=== PATIENT | male | born 1995 | race Two or more races ===

== ENCOUNTER 2020-08-05 02:45 | Emergency (ER) | payer OTHER ==
[~2020-08-05] VITALS: Ht 167.6 cm; Wt 93.6 kg
--- NOTE | 2020-08-05 03:15 | NUR ---
assessment made. ERP at bedside. Urine sample collected and sent to lab. patient gowned. all belongings placed on secured area, labelled and locked.
--- NOTE | 2020-08-05 03:34 | NUR ---
laborer syrup machine at bedside for blood draw.
--- NOTE | 2020-08-05 03:35 | NUR ---
sitter at the door.
[2020-08-05 03:43] LABS: BASOPHILS % (AUTO) 1 % (0-1); EOSINOPHILS % (AUTO) 2 % (1-7); LYMPHOCYTES % (AUTO) 28 % (22-44); MEAN CORPUSCULAR HEMOGLOBIN 29.2 pg (27.5-34.5); MEAN CORPUSCULAR HGB CONC 34.6 g/dL (33.2-36.2); MEAN PLATELET VOLUME 8.4 fL (7.4-10.4); MONOCYTES % (AUTO) 8 % (2-9); NEUTROPHILS % (AUTO) 61 % (42-75); PLATELET COUNT 220 x10^3/uL (130-400); RED BLOOD COUNT 4.98 x10^6/uL (4.38-5.82); RED CELL DISTRIBUTION WIDTH 13.8 % (9.4-14.8)
[2020-08-05 03:45] LABS: MD NO
[2020-08-05 03:45] LABS: AMPHETAMINE SCREEN, URINE Negative (Negative); BARBITURATE SCREEN, URINE Negative (Negative); BENZODIAZEPINE SCREEN, URINE Negative (Negative); CANNABINOID SCREEN, URINE Positive (Negative); COCAINE SCREEN, URINE Negative (Negative); METHADONE SCREEN, URINE Negative (Negative); OPIATE SCREEN, URINE Negative (Negative)
[2020-08-05 03:54] LABS: ALANINE AMINOTRANSFERASE 56 U/L (12-78); ALBUMIN 4.1 g/dL (3.4-5.0); ANION GAP 4 mmol/L (5-15); CALCIUM 9.5 mg/dL (8.5-10.1); CHLORIDE 105 mmol/L (98-107); CREATININE 0.84 mg/dL (0.7-1.3)
[2020-08-05 03:56] LABS: SALICYLATE LEVEL < 1.7 mg/dL (2.8-20.0)
[2020-08-05 04:05] LABS: ALKALINE PHOSPHATASE 136 U/L (45-117); TOTAL PROTEIN 7.7 g/dL (6.4-8.2)
--- NOTE | 2020-08-05 04:16 | NUR ---
patient sleeping. girlfriend at bedside. no complaints at this time.
[2020-08-05 05:35] VITALS: BP 110/78
--- NOTE | 2020-08-05 06:26 | NUR ---
Patients insurance now updated to "[employer]." Keshav from [facility] states he will look over patients packet at let us know if they would like to accept patient.
--- NOTE | 2020-08-05 06:50 | NUR ---
report to ISIDRO Rueda
--- NOTE | 2020-08-05 06:59 | NUR ---
REPORT FROM JOSÉ LUIS. PT RESTING, SITTER PRESENT
--- NOTE | 2020-08-05 08:15 | NUR ---
MEAL TRAY PROVIDED
--- NOTE | 2020-08-05 08:35 | NUR ---
UPDATED PT W POC. NO FURTHER NEEDS AT THIS TIME.
--- NOTE | 2020-08-05 09:49 | NUR ---
ASSUMED CARE OF PT. REPORT RECEIVED FROM AFRICA FELIX
--- NOTE | 2020-08-05 10:20 | NUR ---
REPORT GIVEN TO JOHANNA FELIX [facility]. ALL BELONINGS SENT WITH PT. TO UNIT
[2020-08-05] MEDS ORDERED: BUPR150T73 PO (12:02)
[2020-08-08] MEDS ORDERED: DIVA-59 PO (09:34)
== END 2020-08-05 10:33 | disposition other institution (70) ==
LOC: ED 03:32
DX: F32.1 Major depressive disorder, single episode, moderate (principal); Z20.822 Contact with and (suspected) exposure to COVID-19; R45.851 Suicidal ideations
CPT/HCPCS: 36415; 80053; 80299; 80307; 80320; 80329; 84443; 85025; 87426; 99284; G0480